=== PATIENT | female | born 1995 | race Caucasian/White ===

== ENCOUNTER 2020-11-10 19:33 | Outpatient (CLI) | payer OTHER ==
[~2020-11-10 19:33] MED LIST: OMNICEF 300 MG300 MG PO; PERCOCET 7.5-31 EACH PO; VENTOLIN HFA 66.7 GM INH; ZITHROMAX500 MG PO; ZOFRAN4 MG PO
== END 2020-11-10 21:29 | disposition home or self-care (01) ==
LOC: GENOP 19:33
DX: O26.893 Other specified pregnancy related conditions, third trimester (principal)
CPT/HCPCS: 81001; 83518; G0463